=== PATIENT | female | born 1975 | race Hispanic/Latino ===

== ENCOUNTER 2016-09-14 07:46 | Day surgery (SDC) | payer OTHER ==
[2016-09-14] VITALS (8 sets, daily range): BP systolic 99–112; BP diastolic 52–74; PULSE 60–70; RESP 10–20; O2SAT 94–100
[~2016-09-14] VITALS: Ht 170.2 cm; Wt 75.0 kg
[~2016-09-14 07:46] MED LIST: mirena INTRAUTERI
[2016-09-14] MEDS ORDERED: fentaNYL-PF 50 mCg/mL 2 mL Inj ONE (07:47)
[2016-09-14] MEDS ORDERED: Ondansetron 2 mg/mL 2 mL Inj ONE (07:47)
[2016-09-14] MEDS ORDERED: Dexamethasone 4 mg/mL Inj ONE (07:47)
[2016-09-14] MEDS ORDERED: Propofol 10,000 mCg/mL 20 mL Inj ONE (07:47)
[2016-09-14] MEDS: Lactated Ringer's 1,000 ML IV SCH ×2 (07:53→08:55)
[2016-09-14] MEDS ORDERED: HYDROcodone-APAP 5-325 mg Tablet PO PRN (08:15)
--- NOTE | 2016-09-14 08:50 | PCM.HPANE ---
Patient Data Date of Service: Sep 14, 2016 Surgeon Admitting Provider: Attending Provider:Davey Pace DO Primary Care Physician:Mc Other Provider:Jennifer Pryor Anesthesia Reason for Visit Left Dorsal Wrist Ganglion Ht/WT & BMI Height (Feet): 5 Height (Inches): 7 Weight (Kilograms): 75 Body Mass Index 25.00 Allergies Coded Allergies: No Known Allergies (Unverified Allergy, Unknown, 04/02/16) Past Anesthesia History Anesthesia History: Denies:: Anesthesia Reactions, Fam Anesthesia Reaction, Fam Malignant Hypertherm, Malignant Hyperthermia Diabetes History Hx Diabetes?: No MRSA MRSA: No Medications Hypertension Medication: No Home Meds Incl Beta Zuly: No Reported Medications [mirena] 20mcg/24hrs No Conflict Check20 Mcg INTRAUTERI DAILY 09/11/16 Discontinued Scripts Polyethylene Glycol 3350 (Miralax)17 Gm Powd.pack17 Gm PO DAILY #1 BOTTLE Prov:Canelo Stephens PA-C 04/03/16 oxyCODONE 5 Mg Tablet5 Mg PO Q4H PRN For Moderate Pain #20 TABLET Prov:Canelo Stephens PA-C 04/03/16 History History of ENT Problems?: No HEENT History: Denies:: Cataracts Dysphagia Glaucoma Hearing Problem Sinus Problem Hx of Heart Problems?: No Cardiovascular History: Denies:: Abdominal Aortic Aneurism Atrial Fibrillation Cardiac Surgery Chest Pain Congestive Heart Failure Edema Heart Murmur Hypertension Irregular Heartbeat Pacemaker Thrombophlebitis Hx of Respiratory Problem?: No Respiratory History: Denies:: Asthma COPD Chest Surgery Dyspnea Emphysema Hemoptysis Oxygen Administration Pneumonia Tuberculosis Use of C-PAP Machine Hx Neurologic Problems?: No Neurological History: Denies:: Alzheimer's Disease CVA Dementia Dizziness Headaches Multiple Sclerosis Parkinson's Disease Seizures Hx of GI Problems?: No Gastrointestinal History: Denies:: Diverticulitis Gall Bladder Disease Gastroesphageal Reflux Gastrointestinal Bleeding Heartburn Hepatitis Hiatal Hernia Rectal Bleeding Other GI Pertinent History: hx of appe 2016 Hx of Problems?: No Genitourinary History: Denies:: HX of Hemodialysis Kidney Stones Urinary Tract Infection HX of Peritoneal Dialysis: No Female Hx: Denies:: Currently Endometriosis Pelvic Inflammatory Problems with Breasts? Skin History: Denies:: History Skin Disorders? Pressure Ulcers Hx Musculoskeletal Problems?: Yes Musculoskeletal History: Positive for:: Musculoskeletal Trauma (left wrist ganglion current admission problem) Denies:: Back Injury Fibromyalgia Joint Replacement Osteoarthritis Systemic Lupus Hx of Psycho/Social Problems?: No Psycho Social History: Denies:: Anxiety Bipolar Disorder Hx Depression Suicide Attempt Hx Surgeries?: Yes (appe) Hx Any Other Health Problems?: Yes Other History: Denies:: Cancer Hospitalization Thyroid Disease History Blood Transfusions: Positive for:: Accept Blood Products? Denies:: Blood Transfuse Reaction Blood Transfusions Hx Diabetes: No Hx Alcohol Use: NoHx Substance Use: No Smoking Status: Never Smoker Have You Smoked inLast 12 mo: No Stop/Bang S-Snoring: Do You Snore Loudly: No T-Tired: feel tired, fatigued: No O-Obsered: Observed not breath: No P-Blood Pressure: treated: No B- Body Mass Index > 35 kg/m2: No A- Age over 50: No N- Neck Large Circumference: No G- Gender Male: No MELVIN Total Score: 0 MELVIN Risk Assessment: Low Risk, <3 Yes Risk Assessment Category Category 1A: Patient has history of documented sleep apnea, and HAS NOT received any narcotic, sedative or anesthesia administration during this stay. Category 1B: Patient has history of documented sleep apnea, and HAS received any narcotic , sedative or anesthesia administration during this stay Category 2: Patient has SUSPECTED Obstructive Sleep Apnea, and HAS received any narcotic , sedative or anesthesia administration during this stay. Category 3: Patient has SUSPECTED Obstructive Sleep Apnea and HAS NOT received narcotic, sedative or anesthesia administration during this stay. Category 4: Outpatient in Procedural Areas with known sleep apnea or who screen positive for High Risk via the STOP/BANG questionnaire. Exam Exam Vital Signs Vital Signs Date Time Temp Pulse Resp B/P Pulse Ox O2 Delivery O2 Flow Rate FiO2 09/14/16 08:03 36 63 20 106/73 99 Room Air General Appearance: Alert, Oriented X3, Cooperative, No Acute Distress HEENT/AIRWAY: MP 2 Lungs: Clear to Auscultation, Normal Air Movement Heart: Exam Unremarkable, Regular Rate/Rhythm, No Murmurs/Rubs/Gallops Meds/Labs/Diagnostics Admission Meds Current Medications Lactated Ringer's (Lr) 1,000 ml @ 120 mls/hr Q8H20M IV Last administered on t 07:53; Start 09/14/16 at 05:00; Stop 09/14/16 at 13:19 Labs hcg neg Plan Impression Patient chart reviewed, patient interviewed and anesthestic plan with risks, benefits, and alternatives discussed, and informed consent obtained. NPO Status: 09/13/16 ASA Physical Status: ASA1 Normal Healthy Anesthetic Plan: GA Bene/Risks/Altern/Consents: Yes HP Complete Prior to Induction: Yes Sai Hernandez MD Sep 14, 2016 08:50
[2016-09-14] MEDS ORDERED: Lactated Ringer's 1,000 ML IV SCH (09:05)
[2016-09-14] MEDS ORDERED: EPHEDrine Sulfate 50 mg/mL Inj IVPUSH PRN (09:05)
[2016-09-14] MEDS ORDERED: MetoCLOpramide 5 mg/mL 2 mL Inj IVPUSH PRN (09:05)
[2016-09-14] MEDS ORDERED: HYDROmorphone 1 mg/mL Inj IVPUSH PRN (09:05)
[2016-09-14] MEDS ORDERED: Ondansetron 2 mg/mL 2 mL Inj IVPUSH PRN (09:05)
[2016-09-14] MEDS ORDERED: Lactated Ringer's 500 ML IV PRN (09:05)
[2016-09-14] MEDS ORDERED: hydrALAZINE 20 mg/mL Inj IVPUSH PRN (09:05)
[2016-09-14] MEDS ORDERED: Labetalol 5 mg/mL 4 mL Inj IV PRN (09:05)
[2016-09-14] MEDS ORDERED: Phenylephrine 10,000 mCg/mL Inj IVPUSH PRN (09:05)
[2016-09-14] MEDS ORDERED: fentaNYL-PF 50 mCg/mL 2 mL Inj IVPUSH PRN (09:05)
[2016-09-14] MEDS ORDERED: Atropine 0.4 mg/mL Inj IVPUSH PRN (09:05)
[2016-09-14] MEDS ORDERED: Lidocaine 1%-Epi 1:100,000 20 mL Inj NERVEBLOCK ONE (09:20)
--- NOTE | 2016-09-14 09:30 | PCM.ANEP1 ---
Post Anesthesia Phase 1 PACU Phase 1 Assessment Date of Service: Sep 14, 2016 Vital Signs 36.2 94/55 62 9 95% RA Anesthetic Administered: GA Level of Alertness: Sleeping, hard to arouse Pain: No Nausea or Vomiting: No Oxygen Delivery: Room Air Lungs: Clear to Auscultation, Normal Air Movement Sai Hernandez MD Sep 14, 2016 09:30
--- NOTE | 2016-09-14 11:26 | PCM.ANEP2 ---
Post Anesthesia Evaluation ASA/CMS Post Anesthesia Date of Service: Sep 14, 2016 VS in Patient's Normal Range?: Yes Resp Stable; Airway Patent?: Yes CV Function & Hydration Stable: Yes Mental Status Recovered?: Yes Pain control Satisfactory?: Yes N/V Control Satisfactory?: Yes Sai Hernandez MD Sep 14, 2016 11:26
--- NOTE | 2016-09-15 | OP ---
[address] [address] OPERATIVE REPORT PATIENT: BETZAIDA HERNANDEZ : 1975 MR#: [id number] ADMIT: 09/14/2016 JOB ID: [id number] DATE OF SURGERY: 09/14/2016 PREOPERATIVE DIAGNOSIS(ES): Left dorsal wrist ganglion. POSTOPERATIVE DIAGNOSIS(ES): Left dorsal wrist ganglion. PROCEDURE: Excision of left dorsal wrist ganglion. SURGEON: Davey Pace D.O. ANESTHESIA: General. HISTORY: The patient is a pleasant 40-year-old female with a longstanding history of a left dorsal wrist ganglion. Originally, we had discussed treating this nonoperatively; but she re-presented as the mass had enlarged and started to become bothersome to her with dorsiflexion and wrist activities. I explained the risks, benefits, alternatives, and indications to proceed with a left dorsal wrist ganglion excision. She understood the risks include, but not limited to, neurovascular injury, tendon injury, infection, failure of the cyst to be fully excised, recurrent stiffness, persistent pain, all of which may require further intervention. The patient had all questions answered. Consent was signed and placed in chart. PROCEDURE IN DETAIL: The patient was brought to the operative suite and placed supine on the operating room table. Surgical time-out was performed. Everyone in the room was in agreement. After appropriate anesthesia was obtained, a left upper arm tourniquet was applied, and the left upper extremity was prepped and draped in the sterile fashion. Left upper extremity was then exsanguinated, and the tourniquet inflated to 250 mmHg. A transverse incision was made directly overlying the dorsal wrist ganglion. Subcutaneous tissues were dissected with bipolar electrocautery utilized to maintain hemostasis throughout the procedure. The dorsal extensor tendons were well identified and protected. The dorsal wrist ganglion was freed up from the surrounding soft tissues and removed in its entirety to include the stalk. A small rent was made in the dorsal capsule. Copious irrigation was then performed, and the skin closed with 5-0 nylon in a simple interrupted fashion. The patient was then placed into a bulky soft dressing with a volar resting splint. ESTIMATED BLOOD LOSS: Less than 1 cc. COMPLICATIONS: None. DISPOSITION: The patient tolerated the procedure well. Anesthesia was reversed. The patient was transferred back to recovery. SPECIMENS: Dorsal wrist ganglion that was disposed of. POSTOPERATIVE PLAN: The patient will follow up in office in two weeks, and I will remove the patient's sutures at that time as well as her splint and have her start working on range of motion of the wrist and scar mobilization.
== END 2016-09-14 23:59 | disposition home or self-care (01) ==
LOC: SAS 07:46
PROVIDERS: ATTEND Orthopaedic Surgery
DX: M67.432 Ganglion, left wrist (principal); I10 Essential (primary) hypertension; G43.909 Migraine, unspecified, not intractable, without status migrainosus; F32.9 Major depressive disorder, single episode, unspecified; Z97.5 Presence of (intrauterine) contraceptive device
CPT/HCPCS: 25111; J1100; J1885; J2250; J2405; J3010; J7120